=== PATIENT | male | born 1975 | race Caucasian/White ===

== ENCOUNTER 2022-01-21 20:14 | Day surgery (SDC) | payer OTHER, SELFPAY ==
--- NOTE | ~2022-01-21 | US_ITS ---
EXAMINATION: US venous doppler [facility] DATE: 01/22/2022 07:14 INDICATION: Lower limb pain and swelling. TECHNIQUE: Grayscale ultrasound images without and with compression and Doppler ultrasound images of the bilateral lower extremity veins were obtained. COMPARISON: None. FINDINGS: The visualized portions of right common femoral vein, profunda (deep) femoral vein, femoral vein, pop liteal vein, peroneal veins, posterior tibial veins, and greater saphenous vein outflow are patent. The visualized portions of left common femoral vein, profunda femoral vein, femoral vein, popliteal v ein, peroneal veins, posterior tibial veins, and greater saphenous vein outflow are patent. IMPRESSION: 1. No deep venous thrombosis. Reviewed, dictated and finalized at location A.
--- NOTE | ~2022-01-21 | XR_ITS ---
EXAMINATION: XR abdomen/kub 1V DATE: 01/22/2022 08:11 INDICATION: Foreign body in the distal esophagus TECHNIQUE: A supine view of the abdomen on 2 radiographs was obtained. COMPARISON: None. FINDINGS: Linear foreign body measuring 6.8 cm in length and 2 mm in orthogonal diameter located in the distalm ost esophagus extending to the level of the gastroesophageal junction. No other radiopaque foreign odalis dies identified. Small to moderate amount of stool scattered throughout the colon. No dilated loops o f gas-filled bowel to suggest obstruction. Blunting at the left costophrenic but not cardiophrenic an gles suggesting additional atelectasis/scarring. Linear discoid atelectasis at the right lung base. H eart size is normal. IMPRESSION: 1. 6.8 cm x 2 mm linear foreign body in the distalmost esophagus. Reviewed, dictated and finalized at location B.
--- NOTE | ~2022-01-21 | XR_ITS ---
EXAMINATION: XR chest 2V DATE: 01/22/2022 03:51 INDICATION: Edema in the lower limbs. Fluid overload. TECHNIQUE: Frontal and lateral views of the chest were obtained. COMPARISON: None. FINDINGS: There is mild atelectasis at the lung bases and at left lung apex. No pleural effusion or p neumothorax. The heart size is normal. There is a 6.6 x 0.2 cm radiopaque foreign body in the area of the distal esophagus. There is mild chronic anterior wedging of a midthoracic vertebral body. IMPRESSION: 1. Mild atelectasis in the lungs. 2. Radiopaque foreign body in the area of the distal esophagus. Reviewed, dictated and finalized at location A.
[2022-01-21 20:52] VITALS: BP 113/64; PULSE 85; RESP 18; TEMP 37.1; O2SAT 98
[2022-01-22] VITALS (56 sets, daily range): BP systolic 99–130; BP diastolic 64–87; PULSE 60–74; RESP 12–20; TEMP 36.2; O2SAT 90–100
[2022-01-22 03:36] LABS: Basophils Absolute Auto 0.1 K/mm3 (0.0-0.1); Basophils Percent Auto 0.8 % (0.2-1.2); Eosinophils Absolute Auto 0.2 K/mm3 (0-0.3); Eosinophils Percent Auto 2.6 % (0-4.4); Hematocrit 38.4 % (42.0-52.0); Immature Granulocyte Absolute 0.02 K/mm3 (0.00-0.031); Immature Granulocyte Percent A 0.3 % (0-0.5); Lymphocytes Absolute Auto 2.17 K/mm3 (0.9-3.2); Lymphocytes Percent Auto 28.7 % (18.3-44.2); Mean Corpuscular HGB Conc 33.9 g/dl (32-36); Mean Corpuscular Hemoglobin 30.1 pg (26-34); Mean Corpuscular Volume 88.9 fl (80-100); Monocytes Absolute Auto 0.7 K/mm3 (0.1-0.6); Monocytes Percent Auto 8.9 % (2.6-8.5); Neutrophils Absolute Auto 4.4 K/mm3 (1.3-6.7); Neutrophils Percent Auto 58.7 % (45.5-73.1); Platelet Count Result 165 k/mm3 (150-375); Red Blood Count 4.32 M/mm3 (4.6-6.20); Red Cell Distribution Width 14.6 % (11.5-14.5); White Blood Count 7.6 K/mm3 (4.5-10.0)
[2022-01-22 03:47] LABS: INR 1.1; Prothrombin Time 13.8 Seconds (11.1-14.7)
[2022-01-22 03:48] LABS: Partial Thromboplastin Time 37.1 SECONDS (22.3-36.8)
[2022-01-22 03:49] LABS: Alanine Aminotransferase 15 U/L (6-50); Alkaline Phosphatase 87 U/L (38-126); Anion Gap 5 mmol/L (8-16); Aspartate Amino Transferase 20 U/L (17-59); Bilirubin,Total 0.6 mg/dL (0.2-1.3); Blood Urea Nitrogen 19 mg/dL (9-20); Calcium 8.7 mg/dL (8.4-10.2); Carbon Dioxide 29 mmol/L (22-30); Chloride 105 mmol/L (98-107); Estimated CRCL calculation 112 ml/min; Estimated Glomerular Filt Rate > 60; Glucose 92 mg/dL (65-110); Potassium 3.6 mmol/L (3.4-5.0); Sodium 139 mmol/L (137-145)
[2022-01-22 04:01] LABS: NT Pro B Type Natriuretic Pept 29 pg/mL (5-100); Troponin I < 0.012 ng/mL (0.000-0.034)
--- NOTE | 2022-01-22 04:05 | ED.GENADULT ---
HPI - General Adult General Chief complaint: Extremity Problem,Nontraumatic Stated complaint: swelling to aaron leg leg/feet Time Seen by Provider: 01/22/22 03:43 History of Present Illness HPI narrative: 46-year-old male with history of rheumatoid arthritis presenting to the emergency department for evaluation of worsening lower extremity edema. Patient states his lower extremities have been swelling over the course of the last month. Patient is currently homeless and does spend an excessive amount of time in the heat and on his feet. Patient denies any prior history of PE or DVT. Patient denies any falls or injuries. Patient denies any chest or shortness of breath at this time. Patient states he has attempted to seek placement into a homeless alf but has been unable to. Patient states he is currently sleeping outside. Care coordination consult was placed to potentially help with a homeless alf Related Data Home Medications Medication Instructions Recorded Confirmed buspirone 10 mg tablet tablet 01/21/22 carvedilol 6.25 mg tablet tablet 01/21/22 folic acid 1 mg tablet tablet 01/21/22 hydroxychloroquine 200 mg tablet tablet PO 01/21/22 meclizine 25 mg tablet tablet 01/21/22 methotrexate sodium 2.5 mg tablet tablet 01/21/22 naproxen 500 mg tablet tablet 01/21/22 pantoprazole 40 mg tablet,delayed tablet PO 01/21/22 release sertraline 100 mg tablet tablet 01/21/22 sulfasalazine 500 mg tablet tablet 01/21/22 Allergies Allergy/AdvReac Type Severity Reaction Status Date / Time allopurinol AdvReac Itching Verified 01/21/22 20:55 tramadol AdvReac Dizziness Verified 01/21/22 20:55 Review of Systems Review of Systems: CONSTITUTIONAL: Denies fever, chills, or sweats. EYES: Denies visual changes, redness, or discharge. ENT: Denies rhinorrhea, congestion, sore throat, or otalgia. CARDIOVASCULAR: Denies chest pain, palpitations, or edema. RESPIRATORY: Denies cough or dyspnea. GASTROINTESTINAL: Denies abdominal pain, nausea, vomiting, or diarrhea. GENITOURINARY: Denies dysuria or hematuria. SKIN: Denies rash or itching. MUSCULOSKELETAL: Lower extremity edema, chronic joint pain secondary to rheumatoid arthritis. NEUROLOGIC: Denies headache, numbness, or weakness. Exam Narrative: APPEARANCE: Well appearing, no pain, no distress, well-nourished. HEAD: normocephalic, atraumatic. EYES: PERRLA/EOMI, conjunctivae clear. NOSE: Normal no drainage NECK: Supple. No adenopathy, no masses. RESPIRATORY: Airway patent, respirations nonlabored. Clear to auscultation bilaterally, no rales, rhonchi, wheezing. CARDIOVASCULAR: Regular rate and rhythm without murmurs rubs or gallops. ABDOMINAL: Soft, nontender, nondistended, normal bowel sounds MUSCULOSKELETAL: Moves all extremities. Nonpitting edema of the lower extremities NEURO: Alert. Cranial nerves II through XII intact. Grossly intact SKIN: Warm, dry. Normal Color Course Course Emergency Course: Patient is afebrile with no leukocytosis. Low concern for underlying infectious process. Low concern for cellulitis. Electrolytes are within normal limits. Patient has good creatinine clearance. Patient's troponin and BNP are not elevated. At time of signout to Dr. Danielle ultrasounds of bilateral lower extremities are pending. Care coordination consult is also pending. Vital Signs Vital signs: Vital Signs Temperature 37.1 C 01/21/22 20:52 Pulse Rate 85 01/21/22 20:52 Respiratory Rate 18 01/21/22 20:52 Blood Pressure 113/64 01/21/22 20:52 Pulse Oximetry 98 01/21/22 20:52 Oxygen Delivery Room Air 01/21/22 20:52 Temperature 37.1 C 01/21/22 20:52 Pulse Rate 70 01/22/22 07:44 Respiratory Rate 14 01/22/22 07:44 Blood Pressure 117/77 01/22/22 07:44 Pulse Oximetry 97 01/22/22 07:44 Oxygen Delivery Room Air 01/21/22 20:52 Medical Decision Making Vital Signs Vital Signs: Vital Signs Temperature 37.1 C 01/21/22 20:52 P
[2022-01-22] MEDS: FUROSEMIDE INJ 40 MG/4 ML VIAL IV PUSH (04:12)
--- NOTE | 2022-01-22 10:22 | WPDANESEPPF ---
Anes - Initial Pre Proc Eval Procedure: Operation Date: 01/22/22 14:00 Proposed Procedures p Esophagogastroduodenoscopy - Gabe Salguero MD Date/Time: 01/22/22 10:22 Surgeon: Gabe Salguero MD Pre Op Diagnosis: swelling to aaron leg leg/feet, foreign body Patient Data Age: 46 Gender: M Height: 1.83 m Weight: 102 kg Last Vital Signs Temp 37.1 C 01/21/22 20:52 Pulse 66 01/22/22 10:01 Resp 19 01/22/22 10:01 BP 119/70 01/22/22 10:01 Pulse Ox 100 01/22/22 10:01 O2 Del Method Room Air 01/21/22 20:52 Allergies Allergy/AdvReac Type Severity Reaction Status Date / Time allopurinol AdvReac Itching Verified 01/21/22 20:55 tramadol AdvReac Dizziness Verified 01/21/22 20:55 Home Medications Medication Instructions Recorded Confirmed Type buspirone 10 mg tablet tablet 01/21/22 History carvedilol 6.25 mg tablet tablet 01/21/22 History folic acid 1 mg tablet tablet 01/21/22 History hydroxychloroquine 200 mg tablet tablet PO 01/21/22 History meclizine 25 mg tablet tablet 01/21/22 History methotrexate sodium 2.5 mg tablet tablet 01/21/22 History naproxen 500 mg tablet tablet 01/21/22 History pantoprazole 40 mg tablet,delayed tablet PO 01/21/22 History release sertraline 100 mg tablet tablet 01/21/22 History sulfasalazine 500 mg tablet tablet 01/21/22 History Laboratory Tests 01/22/22 01/22/22 01/22/22 03:30 03:30 03:30 WBC 7.6 K/mm3 K/mm3 (4.5-10.0) RBC 4.32 M/mm3 L M/mm3 (4.6-6.20) Hgb 13.0 g/dL L g/dL (14.0-18.0) Hct 38.4 % L % (42.0-52.0) MCV 88.9 fl fl (80-100) MCH 30.1 pg pg (26-34) MCHC 33.9 g/dl g/dl (32-36) RDW 14.6 % H % (11.5-14.5) Plt Count 165 k/mm3 k/mm3 (150-375) MPV 8.0 fl fl (7.4-10.4) Immature Gran % (Auto) 0.3 % % (0-0.5) Neut % (Auto) 58.7 % % (45.5-73.1) Lymph % (Auto) 28.7 % % (18.3-44.2) [place] % (Auto) 8.9 % H % (2.6-8.5) Eos % (Auto) 2.6 % % (0-4.4) Baso % (Auto) 0.8 % % (0.2-1.2) Lymph # (Auto) 2.17 K/mm3 K/mm3 (0.9-3.2) [place] # (Auto) 0.7 K/mm3 H K/mm3 (0.1-0.6) Eos # (Auto) 0.2 K/mm3 K/mm3 (0-0.3) Baso # (Auto) 0.1 K/mm3 K/mm3 (0.0-0.1) Abs Immat Gran (auto) 0.02 K/mm3 K/mm3 (0.00-0.031) Absolute Neuts (auto) 4.4 K/mm3 K/mm3 (1.3-6.7) Absolute Nucleated RBC 0.0 K/mm3 K/mm3 (0.0-0.012) Nucleated RBC % 0.0 % % (0.0-0.2) PT 13.8 Seconds Seconds (11.1-14.7) INR 1.1 APTT 37.1 SECONDS H SECONDS (22.3-36.8) Sodium 139 mmol/L mmol/L (137-145) Potassium 3.6 mmol/L mmol/L (3.4-5.0) Chloride 105 mmol/L mmol/L (98-107) Carbon Dioxide 29 mmol/L mmol/L (22-30) Anion Gap 5 mmol/L L mmol/L (8-16) BUN 19 mg/dL mg/dL (9-20) Creatinine 0.90 mg/dL mg/dL (0.7-1.3) Estim Creat Clear Calc 112 ml/min ml/min Estimated GFR > 60 (59 - ) Glucose 92 mg/dL mg/dL (65-110) Calcium 8.7 mg/dL mg/dL (8.4-10.2) Total Bilirubin 0.6 mg/dL mg/dL (0.2-1.3) AST 20 U/L U/L (17-59) ALT 15 U/L U/L (6-50) Alkaline Phosphatase 87 U/L U/L (38-126) Troponin I < 0.012 ng/mL ng/mL (0.000-0.034) NT-Pro-B Natriuret Pep 29 pg/mL pg/mL (5-100) Total Protein 7.0 g/dL g/dL (6.3-8.2) Albumin 4.0 g/dL g/dL (3.5-5.1) Patient hx anesthesia problems: none Family hx anesthesia problems: none Results Review: All pre-operative results and documents have been reviewed as part of the pre-operative evaluation. [facility] Past Medical History Medical History (Updated 01/22/22 @ 10:24 by Tim Carreon DO) Bilateral edema of lower extremi
[2022-01-22] MEDS: LACTATED RINGERS 1,000 ML 150 ML IV CONT (10:23)
--- NOTE | 2022-01-22 10:32 | PM.HPGS ---
History of Present Illness History of Present Illness Consent: Risks, benefits, and alternatives have been discussed and questions answered. Patient agrees to proceed with procedure. Chief complaint: swelling to aaron leg leg/feet, foreign body Narrative: Rishi Gama is a 46 year old male wiht history of HTN, homeless here for evaluation of leg edema. XR showed 6.8 cm x 2 mm linear foreign body in the distal esophagus however he denies dysphagia and does not remember swallowing anything differently. He says that had EGD in the past Review of Systems Constitutional: Constitutional: Denies headache(s) and Denies weakness Eyes: Eyes: Denies blurry vision ENT: Reports Normal hearing present, Denies headache(s) and Denies neck pain Cardiovascular: Cardiovascular: Denies chest pain and Denies dyspnea Respiratory: Respiratory: Denies dyspnea Gastrointestinal: Gastrointestinal: Reports no additional gastrointestinal complaints Genitourinary: Genitourinary: Denies dysuria Musculoskeletal: Musculoskeletal: Denies neck pain Integumentary/Breasts: Skin/Breast: Denies dry skin Neurologic: Reports Normal hearing present, Denies headache(s) and Denies weakness Psychiatric: Psychiatric: Denies anxiety Endocrine: Endocrine: Denies change in body appearance Hematologic/Lymphatic: Hematologic/Lymphatic: Denies easy bleeding Allergic/Immunologic: Allergic/Immunologic: Denies urticaria PMFSH Past Medical History Medical History (Updated 01/22/22 @ 10:24 by Tim Carreon DO) Bilateral edema of lower extremity Rheumatoid arthritis Seizure Meds Home Medications and Allergies Home Medications Medication Instructions Recorded Confirmed Type buspirone 10 mg tablet tablet 01/21/22 History carvedilol 6.25 mg tablet tablet 01/21/22 History folic acid 1 mg tablet tablet 01/21/22 History hydroxychloroquine 200 mg tablet tablet PO 01/21/22 History meclizine 25 mg tablet tablet 01/21/22 History methotrexate sodium 2.5 mg tablet tablet 01/21/22 History naproxen 500 mg tablet tablet 01/21/22 History pantoprazole 40 mg tablet,delayed tablet PO 01/21/22 History release sertraline 100 mg tablet tablet 01/21/22 History sulfasalazine 500 mg tablet tablet 01/21/22 History Allergies Allergy/AdvReac Type Severity Reaction Status Date / Time allopurinol AdvReac Itching Verified 01/21/22 20:55 tramadol AdvReac Dizziness Verified 01/21/22 20:55 Vital Signs Vital Signs - 24 hr 01/21/22 20:52 01/22/22 03:15 01/22/22 03:16 Temperature 98.7 F Pulse Rate 85 73 73 Respiratory Rate 18 15 15 Blood Pressure 113/64 130/81 Pulse Oximetry 98 100 100 Oxygen Delivery Room Air 01/22/22 03:17 01/22/22 03:30 01/22/22 03:31 Temperature Pulse Rate 68 73 70 Respiratory Rate 16 15 17 Blood Pressure 123/87 Pulse Oximetry 100 100 100 Oxygen Delivery 01/22/22 03:51 01/22/22 04:00 01/22/22 04:13 Temperature Pulse Rate 62 73 66 Respiratory Rate 17 18 19 Blood Pressure 120/73 Pulse Oximetry 100 100 98 Oxygen Delivery 01/22/22 04:16 01/22/22 04:30 01/22/22 04:31 Temperature Pulse Rate 71 68 71 Respiratory Rate 12 15 16 Blood Pressure 114/76 124/82 Pulse Oximetry 100 99 99 Oxygen Delivery 01/22/22 04:45 01/22/22 04:46 01/22/22 05:00 Temperature Pulse Rate 65 73 Respiratory Rate 13 13 Blood Pressure 113/79 Pulse Oximetry 98 99 99 Oxygen Delivery 01/22/22 05:01 01/22/22 05:15 01/22/22 05:16 Temperature Pulse Rate 74 71 72 Respiratory Rate 20 14 16 Blood Pressure 118/80 119/76 Pulse Oximetry 100 99 100 Oxygen Delivery 01/22/22 05:30 01/22/22 05:31 01/22/22 05:45 Temperature Pulse Rate 63 64 73 Respiratory Rate 14 16 15 Blood Pressure 115/78 Pulse Oximetry 98 100 Oxygen Delivery 01/22/22 05:46 01/22/22 05:47 01/22/22 06:00 Temperature Pulse Rate 65 71 69 Respiratory Rate 16 13 15 Blood Pressure 118/79 Pulse Oxime
--- NOTE | 2022-01-22 11:04 | PC.NURSE ---
per ANKIT Martinez, pt had abnormal QRS during procedure although rhythm appeared normal. VSS. pt becoming arousable, denies complaints.
--- NOTE | 2022-01-22 11:05 | ECG_ITS ---
Measurements Intervals [place] Rate: 72 P: 59 DC: 168 QRS: 24 QRSD: 109 T: 18 QT: 429 QTc: 472 Interpretive Statements SINUS RHYTHM NONSPECIFIC T-WAVE ABNORMALITY INFERIOR LEADS BORDERLINE ECG WANDERING BASELINE ARTIFACT NO PREVIOUS ECG AVAILABLE FOR COMPARISON Electronically Signed On 01-22-2022 12:05:40 CDT by Clayton Tatum M.D.
--- NOTE | 2022-01-22 11:09 | SUR.PHASEII ---
EKG to be performed.
--- NOTE | 2022-01-22 11:55 | SUR.PHASEII ---
awaiting cardiology to read EKG
--- NOTE | 2022-01-22 12:48 | SUR.PHASEII ---
Dr. Carreon spoke with pt. pt okay to go. awaiting cab to transport pt via voucher from care coordination.
--- NOTE | 2022-01-22 12:57 | SUR.PHASEII ---
pt ambulated to [facility] without difficult. pt reports vertigo comes and goes. denies complaints. pt provided darin crackers and soda. awaiting cab.
== END 2022-01-22 13:45 | disposition home or self-care (01) ==
LOC: ANHED 01-22 08:30 → ANHENDO 01-22 08:39
PROVIDERS: Emergency Medicine; Emergency Provider Emergency Medicine; PCP Internal Medicine Infectious Disease; Visit Provider Internal Medicine Gastroenterology
PROC: 0DJ08ZZ Inspection of Upper Intestinal Tract, Via Natural or Artificial Opening Endoscopic (ICD-10-PCS; CPT 43235; principal; 2022-01-22 14:00)
DX: M79.89 Other specified soft tissue disorders (principal); K20.80 Other esophagitis without bleeding; Z59.00 Homelessness unspecified; M06.9 Rheumatoid arthritis, unspecified; E66.9 Obesity, unspecified; Z68.30 Body mass index [BMI] 30.0-30.9, adult
CPT/HCPCS: 43239; 36415; 71046; 74018; 80053; 83880; 84484; 85025; 85610; 85730; 88305; 93005; 93970; 99285; J1940; J2001; J2704; J7120